=== PATIENT | female | born 1955 | race African-American/Black ===

== ENCOUNTER 2023-03-06 17:07 | Emergency (ER) | payer MEDICAID ==
[~2023-03-06] VITALS: Ht 162.6 cm; Wt 75.0 kg
[~2023-03-06 17:07] MED LIST: AMLO2.5T45 PO; ATOR10TA PO; Aspirin PO; ENAL20TA18; GLIPIZIDE; LANS30CA52 PO; LORAZEPAM; METFORMIN; Metformin Hcl PO; Metoprolol Tartrate PO
[2023-03-06 17:12] VITALS: BP 145/106
[2023-03-06 18:02] LABS: HEMATOCRIT 27.8 % (36.0-48.0); HEMOGLOBIN 9.5 g/dL (12.0-16.0); MEAN CORPUSCULAR HEMOGLOBIN 30.2 pg (28.0-32.0); MEAN CORPUSCULAR VOLUME 88.6 fL (81.0-99.0); PLATELET 303 x1000/uL (130-400); RED BLOOD CELL COUNT 3.14 mill/uL (4.2-5.4); RED CELL DISTRIBUTION WIDTH 15.3 % (11.6-14.6)
[2023-03-06 18:10] LABS: CHLORIDE 103 mEq/L (98-107)
[2023-03-06 19:30] LABS: CLARITY URINE TURBID (CLEAR); COLOR URINE YELLOW (YELLOW); KETONES URINE NEGATIVE (NEGATIVE); LEUKOCYTE ESTERASE URINE TRACE (NEGATIVE); NITRITE URINE NEGATIVE (NEGATIVE); OCCULT BLOOD URINE 2+ (NEGATIVE); PROTEIN URINE 4+ (NEGATIVE); SPECIFIC GRAVITY URINE 1.019 (1.005-1.030); UROBILINOGEN URINE 0.2 E.U./dL (0.2-1.0)
== END 2023-03-07 00:40 | disposition short-term general hospital (02) ==
LOC: ER 17:07 → EDBEDREQ 22:10 → ER 03-07 00:40
DX: N17.9 Acute kidney failure, unspecified (principal); J44.9 Chronic obstructive pulmonary disease, unspecified; E11.9 Type 2 diabetes mellitus without complications; I10 Essential (primary) hypertension; Z79.899 Other long term (current) drug therapy; Z20.822 Contact with and (suspected) exposure to COVID-19
CPT/HCPCS: 36415; 71045; 80053; 81003; 83690; 84484; 85027; 87426; 87804; 93005; 99285; C9803